=== PATIENT | female | born 1955 | race Caucasian/White ===

== ENCOUNTER 2022-03-31 15:29 | Emergency (ER) | payer MEDICARE, MEDICAID ==
[2022-03-31] MEDS ORDERED: Amoxicillin/Clavulanate K 500-125 MG Tab PO ONE (15:30)
[2022-04-17 12:20] LABS: ANION GAP 12.2 mmol/L (5-15); CHLORIDE,CL 106 mmol/L (98-115); ESTIMATED GFR 98 mL/min (>=60); SODIUM,NA 142 mmol/L (136-145)
== END 2022-03-31 17:30 ==
LOC: KA.ED 15:29
DX: R06.02 Shortness of breath (principal); N39.0 Urinary tract infection, site not specified; I10 Essential (primary) hypertension; F17.210 Nicotine dependence, cigarettes, uncomplicated
CPT/HCPCS: 36415; 71045; 80053; 81001; 84484; 85025; 87086; 87088; 93005; 99285; A9270

== ENCOUNTER 2022-05-28 22:30 | Emergency (ER) | payer MEDICARE, MEDICAID ==
[2022-05-28] MEDS ORDERED: Sodium Chloride 0.9% 10 ML Syringe FLUSH PRN (22:51)
[2022-05-28] MEDS ORDERED: Sodium Chloride 0.9% 1,000 ML IV ONE (22:52)
[2022-05-28] MEDS ORDERED: Ondansetron 4 MG/2 ML SDV IVPUSH ONE (22:53)
[2022-05-28 23:36] LABS: CHLORIDE,CL 97 mmol/L (98-107); SODIUM,NA 134 mmol/L (136-145)
[2022-05-28 23:40] LABS: ESTIMATED GFR 101 mL/min (>=60)
[2022-05-29] MEDS ORDERED: Acetaminophen/oxyCODONE 325-5 MG Tab PO ONE (00:03)
== END 2022-05-29 02:41 | disposition home or self-care (01) ==
LOC: KA.ED 22:30
DX: R10.11 Right upper quadrant pain (principal); Z88.8 Allergy status to other drugs, medicaments and biological substances; Z88.5 Allergy status to narcotic agent
CPT/HCPCS: 36415; 74177; 80053; 81001; 83690; 84484; 85025; 93005; 96361; 96374; 99283; 99284-25; A9270-GY; J2405; J3490; J7030

== ENCOUNTER 2023-01-22 10:20 | Emergency (ER) | payer MEDICARE, MEDICAID ==
[2023-01-22 10:51] LABS: BASOPHILS ABSOLUTE AUTO 0.02 10^3/uL (0.00-0.10); BASOPHILS PERCENT AUTO 0.4 % (0.0-1.0); EOSINOPHILS ABSOLUTE AUTO 0.27 10^3/uL (0.10-0.30); EOSINOPHILS PERCENT AUTO 4.8 % (1.0-3.0); HEMATOCRIT 38.7 % (37.0-47.0); HEMOGLOBIN 12.9 g/dL (12.0-16.0); IMMATURE GRAN ABSOLUTE AUTO 0.03 10^3/uL (0.00-0.50); IMMATURE GRAN PERCENT AUTO 0.5 % (0.0-5.0); LYMPHOCYTES ABSOLUTE AUTO 1.29 10^3/uL (1.00-4.00); MEAN CORPUSCULAR HEMOGLOBIN 29.7 pg (27.0-31.0); MEAN CORPUSCULAR HGB CONC 33.3 g/dL (32.0-36.0); MEAN PLATELET VOLUME 9.8 fL (7.4-10.4); MONOCYTES ABSOLUTE AUTO 0.48 10^3/uL (0.10-0.80); MONOCYTES PERCENT AUTO 8.5 % (2.0-8.0); NEUTROPHILS ABSOLUTE AUTO 3.53 10^3/uL (2.50-7.00); NEUTROPHILS PERCENT AUTO 62.8 % (50.0-70.0); PLATELET COUNT,PLT 143 10^3/uL (150-400); RED BLOOD CELL COUNT 4.35 10^6/uL (3.80-5.50); RED CELL DISTRIBUTION WIDTH 13.9 % (11.5-14.5); WHITE BLOOD CELL COUNT,WBC 5.62 10^3/uL (5.00-10.00)
[2023-01-22 11:06] LABS: ANION GAP 14.1 mmol/L (5-15); BLOOD UREA NITROGEN,BUN 12 mg/dL (7-18); CALCIUM 9.4 mg/dL (8.7-10.3); CARBON DIOXIDE,CO2 25.5 mmol/L (21.0-32.0); CHLORIDE,CL 101 mmol/L (98-107); CREATININE 0.63 mg/dL (0.51-1.17); GLUCOSE RANDOM 156 mg/dL (70-140); POTASSIUM,K 4.6 mmol/L (3.5-5.1); SODIUM,NA 136 mmol/L (136-145); URIC ACID 6.3 mg/dL (2.6-7.2)
[2023-01-22 11:07] LABS: ESTIMATED GFR 97 mL/min (>=60)
[2023-01-22] MEDS: Acetaminophen 500 MG Tab PO ONE (11:53)
== END 2023-01-22 12:10 | disposition home or self-care (01) ==
LOC: KA.ED 10:20
DX: M79.671 Pain in right foot (principal); E78.00 Pure hypercholesterolemia, unspecified; K21.9 Gastro-esophageal reflux disease without esophagitis; E66.9 Obesity, unspecified; Z68.36 Body mass index [BMI] 36.0-36.9, adult; Z88.5 Allergy status to narcotic agent; Z88.6 Allergy status to analgesic agent; Z88.8 Allergy status to other drugs, medicaments and biological substances; Z79.899 Other long term (current) drug therapy
CPT/HCPCS: 73620-RT; 80048; 84550; 85025; 99283; A9270-GY

== ENCOUNTER 2024-10-28 18:54 | Emergency (ER) | payer MEDICARE, MEDICAID ==
[2024-10-28 19:18] LABS: BASOPHILS ABSOLUTE AUTO 0.01 10^3/uL (0.00-0.10); BASOPHILS PERCENT AUTO 0.1 % (0.0-1.0); EOSINOPHILS ABSOLUTE AUTO 0.01 10^3/uL (0.10-0.30); EOSINOPHILS PERCENT AUTO 0.1 % (1.0-3.0); HEMOGLOBIN 13.3 g/dL (12.0-16.0); IMMATURE GRAN ABSOLUTE AUTO 0.02 10^3/uL (0.00-0.04); IMMATURE GRAN PERCENT AUTO 0.2 % (0.0-0.4); LYMPHOCYTES ABSOLUTE AUTO 0.68 10^3/uL (1.00-4.00); LYMPHOCYTES PERCENT AUTO 8.4 % (20.0-40.0); MEAN CORPUSCULAR HEMOGLOBIN 29.3 pg (27.0-31.0); MEAN CORPUSCULAR VOLUME 83.7 fL (82.0-92.0); MEAN PLATELET VOLUME 9.2 fL (7.4-10.4); MONOCYTES PERCENT AUTO 9.9 % (2.0-8.0); NEUTROPHILS ABSOLUTE AUTO 6.54 10^3/uL (2.50-7.00); NEUTROPHILS PERCENT AUTO 81.3 % (50.0-70.0); PLATELET COUNT,PLT 119 10^3/uL (150-400); RED BLOOD CELL COUNT 4.54 10^6/uL (3.80-5.50); RED CELL DISTRIBUTION WIDTH 14.6 % (11.5-14.5); WHITE BLOOD CELL COUNT,WBC 8.06 10^3/uL (5.00-10.00)
[2024-10-28 19:31] LABS: ALANINE AMINOTRANSFERASE,ALT 36 U/L (14-63); ALBUMIN 3.38 g/dL (3.40-5.00); ALKALINE PHOSPHATASE 57 U/L (46-116); ANION GAP 14.9 mmol/L (5-15); ASPARTATE AMNIOTRANSFERASE,AST 36 U/L (15-37); BLOOD UREA NITROGEN,BUN 15 mg/dL (7-18); CALCIUM 9.5 mg/dL (8.7-10.3); CARBON DIOXIDE,CO2 25.2 mmol/L (21.0-32.0); CHLORIDE,CL 97 mmol/L (98-107); CREATININE 0.64 mg/dL (0.51-1.17); ESTIMATED GFR 96 mL/min (>=60); GLUCOSE RANDOM 165 mg/dL (70-140); LACTIC ACID 1.9 mmol/L (0.4-2.0); POTASSIUM,K 4.1 mmol/L (3.5-5.1); PROTEIN TOTAL,TP 8.1 g/dL (6.4-8.2); SODIUM,NA 133 mmol/L (136-145)
[2024-10-28] MEDS: Ondansetron 4 MG/2 ML SDV IVPUSH ONE (19:38)
== END 2024-10-28 21:05 | disposition home or self-care (01) ==
LOC: KA.ED 18:54
DX: J06.9 Acute upper respiratory infection, unspecified (principal); B96.89 Other specified bacterial agents as the cause of diseases classified elsewhere; R11.0 Nausea; E66.9 Obesity, unspecified; E03.9 Hypothyroidism, unspecified; Z88.6 Allergy status to analgesic agent; Z88.8 Allergy status to other drugs, medicaments and biological substances; Z79.84 Long term (current) use of oral hypoglycemic drugs; Z79.890 Hormone replacement therapy; Z79.899 Other long term (current) drug therapy; Z87.891 Personal history of nicotine dependence; Z90.49 Acquired absence of other specified parts of digestive tract
CPT/HCPCS: 80053; 83605; 85025; 96374; 99283-25; 99284; J2405